=== PATIENT | female | born 1965 | race Caucasian/White ===

== ENCOUNTER 2020-09-19 11:27 | Emergency (ER) | payer BC ==
--- NOTE | 2020-09-19 12:20 | ED Physician Documentation ---
PD HPI LOWER EXT INJURY - Stated complaint Stated Complaint: LT ANKLE INJ - Chief complaint Chief Complaint: Trauma Ext - History obtained from History obtained from: Patient - History of Present Illness PD HPI LOW EXT INJURY LOCATION: Left, Ankle Type of injury: Twist (inversion injury) [place] Timing - onset: Today Timing - details: Abrupt onset, Still present Worsened by: Moving, Other (weight bearing) Associated symptoms: Swelling. No: Weakness, Numbness Similar symptoms before: Has not had sx before Recently seen: Not recently seen Review of Systems Constitutional: denies: Fever, Chills Nose: denies: Rhinorrhea / runny nose, Congestion Throat: denies: Sore throat Respiratory: denies: Cough GI: denies: Nausea, Vomiting, Diarrhea Skin: denies: Abrasion (s), Laceration (s) Neurologic: denies: Focal weakness, Numbness, Altered mental status, Head injury, LOC PD PAST MEDICAL HISTORY - Past Medical History Past Medical History: Yes Cardiovascular: Hypertension Respiratory: Asthma - Past Surgical History Past Surgical History: Yes /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 - Present Medications Home Medications: Ambulatory Orders Medication Instructions Recorded Confirmed Acyclovir 400 mg PO PRN PRN 09/19/20 09/19/20 Albuterol Sulfate [Proair 90 mcg .ROUTE PRN PRN 09/19/20 09/19/20 Respiclick] Fluticasone 44 Mcg [Flovent] 110 mcg .ROUTE PRN PRN 09/19/20 09/19/20 Losartan [Cozaar] 50 mg PO DAILY 09/19/20 09/19/20 - Allergies Allergies/Adverse Reactions: Allergies Allergy/AdvReac Type Severity Reaction Status Date / Time acetaminophen [From Percocet] Allergy Itching Verified 09/19/20 12:07 hydrocodone [From Vicodin] Allergy Itching Verified 09/19/20 12:07 morphine Allergy Itching Verified 09/19/20 12:07 oxycodone [From Percocet] Allergy Itching Verified 09/19/20 12:07 Penicillins Allergy Rash Verified 09/19/20 12:07 terbutaline Allergy Anaphylaxis Verified 09/19/20 12:07 - Social History Does the pt smoke?: No Smoking Status: Never smoker Does the pt drink ETOH?: Yes Does the pt have substance abuse?: No - Immunizations Immunizations are current?: Yes PD ED PE NORMAL - Vitals Vital signs reviewed: Yes - General General: Alert and oriented X 3, Well developed/nourished, Other (appears in pain with ankle movement) - Derm Derm: Normal color, Warm and dry - Extremities Extremities: Other (left ankle with tenderness and swelling lateral ankle. Medially not tender. ) - Neuro Neuro: Alert and oriented X 3, No motor deficit, No sensory deficit, Normal speech Results - Vitals Vitals: Oxygen O2 Source Room air - Rads (name of study) left ankle Radiology: Prelim report reviewed (nondisplaced distal fibular fracture at angle of the mortis. ), See rad report PD MEDICAL DECISION MAKING - ED course Complexity details: reviewed results (distal fibular fracture), considered differential (xray showing fibular fracture. She is [facility] in [facility] now and home to [place], [place] in few days. I think cam walker will be more functional/durable for the circumstances and yet still adequate treatment. ), d/w patient Departure - Departure Disposition: 01 Home, Self Care Clinical Impression: Fracture of distal fibula Qualifiers: Encounter type: initial encounter Fracture type: closed Fracture morphology: unspecified fracture morphology Laterality: left Qualified Code(s): S82.832A - Other fracture of upper and lower end of left fibula, initial encounter for closed fracture Condition: Stable Record reviewed to determine appropriate education?: Yes Instructions: ED Fx Ankle Lateral Malleolus Comments: Keep the ankle splinted with the cast boot. Adjust the tightness as needed for swelling. Ice elevate and rest the ankle often to reduce swelling over the next several days. Nonweightbearing with the crutches. As this heals you will start to be able to put partial weightbearing and then weightbearing on the ankle. That will be over 2 to 3 weeks so not to worry about weightbearing as yet. Follow-up with your pharmacovigilance specialist back home in the next 1 to 1-1/2 weeks. Use anti-inflammatory such as ibuprofen 600 mg 3 times a day with food for the next several days to week. Add Tylenol every 4-6 hours regularly for the first several days then as needed for pain. This will be a 4 to 6-week healing process with the splinting during that time. There will then be a recovery period to get back in shape with your ankle. Discharge Date/Time: 09/19/20 13:34
[2020-09-19] MEDS ORDERED: ACETAMINOPHEN 325 MG TABLET PO STA (12:50)
[2020-09-19] MEDS ORDERED: IBUPROFEN 600 MG TABLET PO STA (12:50)
--- NOTE | 2020-09-19 13:15 | XRAY Report ---
PROCEDURE: Ankle 3 View LT INDICATIONS: Trauma TECHNIQUE: 3 views of the ankle were acquired. COMPARISON: None FINDINGS: Bones: There is a minimally displaced distal fibular fracture. Ankle mortise is normally aligned. No suspicious bony lesions. Soft tissues: Lateral malleolar soft tissue edema is present. Achilles tendon appears normal. IMPRESSION: Minimally displaced distal fibular fracture with prominent ankle edema. Reviewed by: Lou Junior MD on 09/19/2020 1:13 PM PDT Approved by: Lou Junior MD on 09/19/2020 1:13 PM PDT Station ID: [id number]
[2020-09-19 13:23] VITALS: BP 135/78
== END 2020-09-19 13:34 | disposition home or self-care (01) ==
LOC: ED 11:27
DX: S82.832A Other fracture of upper and lower end of left fibula, initial encounter for closed fracture (principal); X50.1XXA Overexertion from prolonged static or awkward postures, initial encounter; Y93.01 Activity, walking, marching and hiking; Y92.821 Forest as the place of occurrence of the external cause; I10 Essential (primary) hypertension
CPT/HCPCS: 73610; 99283; A9270